=== PATIENT | male | born 1955 | race Caucasian/White ===

== ENCOUNTER 2018-05-29 16:07 | Observation (INO) | payer OTHER ==
[~2018-05-29] VITALS: Ht 172.7 cm; Wt 82.1 kg
[~2018-05-29 16:07] MED LIST: ROSU10TA PO; SULTRIDS PO
[2018-05-29 16:34] LABS: BASOPHILS ABSOLUTE AUTO 0.03 K/mm3 (0.00-0.23); BASOPHILS PERCENT AUTO 0 % (0-2); EOSINOPHILS PERCENT AUTO 0 % (0-6); Hematocrit 44.5 % (37.0-53.0); Hemoglobin 14.6 g/dL (13.5-17.5); IMMATURE GRAN ABSOLUTE AUTO 0.11 K/mm3 (0.00-0.10); IMMATURE GRAN PERCENT AUTO 1 % (0-1); LYMPHOCYTES PERCENT AUTO 12 % (21-46); MONOCYTES ABSOLUTE AUTO 0.28 K/mm3 (0.16-1.47); MONOCYTES PERCENT AUTO 3 % (4-13); Mean Corpuscular HGB 30.4 pg (26.0-34.0); Mean Corpuscular HGB Conc 32.8 g/dL (31.5-36.5); Mean Corpuscular Volume 93 fL (80-100); Mean Platelet Volume 10.1 fL (9.1-12.4); NEUTROPHILS ABSOLUTE AUTO 9.17 K/mm3 (1.96-9.15); NEUTROPHILS PERCENT AUTO 84 % (41-73); Platelet Count 309 K/mm3 (150-400); RDW Coefficient Variation 12.5 % (11.7-14.2); RDW Standard Deviation 42.6 fL (35.1-46.3); White Blood Cell Count 10.89 K/mm3 (4.00-11.30)
[2018-05-29] MEDS ORDERED: PRED20 PO (16:48)
[2018-05-29] MEDS ORDERED: ALLO300 PO (16:48)
[2018-05-29 16:49] LABS: Alanine Aminotransfer (ALT/SGP 44 U/L (12-78); Albumin, Blood 4.1 g/dL (3.4-5.0); Albumin/Globulin Ratio 1.2 (0.8-1.8); Alk Phos 114 U/L (50-136); Anion Gap 8 mmol/L (6-16); Aspartate Aminotrans (AST/SGOT 26 U/L (12-37); Bilirubin, Total 0.6 mg/dL (0.1-1.0); Blood Urea Nitrogen 22 mg/dL (8-24); Bun/Creatinine Ratio 23.8 (12.0-20.0); CO2, Blood 23 mmol/L (21-32); Calcium, Blood 8.7 mg/dL (8.5-10.1); Chloride, Blood 109 mmol/L (98-108); Creatinine, Blood 0.93 mg/dL (0.60-1.20); Globulin, Blood 3.4 g/dL (2.2-4.0); Glomerular Filtration Rate >60 (60-); Glucose, Blood 117 mg/dL (70-99); Potassium, Blood 4.6 mmol/L (3.5-5.5); Sodium, Blood 140 mmol/L (136-145); Total Protein, Blood 7.5 g/dL (6.4-8.2); Troponin I 0.028 ng/mL (0.000-0.040)
[2018-05-29] MEDS ORDERED: ALBU90OI61 INH (18:03)
[2018-05-29] MEDS ORDERED: GABA600 PO (18:45)
--- NOTE | 2018-05-29 20:42 | NUR ---
transfer report recieved from Jovanny JOEL in ER on PT being admitted OBS with chestpain. Will be on Tele Echo and stress test rx. Await admission
[2018-05-29 21:34] LABS: Creatine Kinase MB Index 4.3 (0.0-4.0); Troponin I 0.019 ng/mL (0.000-0.040)
[2018-05-30 02:40] LABS: BASOPHILS ABSOLUTE AUTO 0.04 K/mm3 (0.00-0.23); BASOPHILS PERCENT AUTO 0 % (0-2); EOSINOPHILS ABSOLUTE AUTO 0.07 K/mm3 (0.00-0.68); EOSINOPHILS PERCENT AUTO 1 % (0-6); Hematocrit 39.5 % (37.0-53.0); Hemoglobin 12.9 g/dL (13.5-17.5); IMMATURE GRAN ABSOLUTE AUTO 0.08 K/mm3 (0.00-0.10); IMMATURE GRAN PERCENT AUTO 1 % (0-1); LYMPHOCYTES ABSOLUTE AUTO 3.48 K/mm3 (0.84-5.20); LYMPHOCYTES PERCENT AUTO 26 % (21-46); MONOCYTES ABSOLUTE AUTO 0.95 K/mm3 (0.16-1.47); MONOCYTES PERCENT AUTO 7 % (4-13); Mean Corpuscular HGB 30.6 pg (26.0-34.0); Mean Corpuscular HGB Conc 32.7 g/dL (31.5-36.5); Mean Corpuscular Volume 94 fL (80-100); Mean Platelet Volume 10.2 fL (9.1-12.4); NEUTROPHILS PERCENT AUTO 66 % (41-73); Platelet Count 251 K/mm3 (150-400); RDW Coefficient Variation 12.7 % (11.7-14.2); RDW Standard Deviation 43.1 fL (35.1-46.3); Red Blood Cell Count 4.21 M/mm3 (4.30-5.90); White Blood Cell Count 13.62 K/mm3 (4.00-11.30)
[2018-05-30 02:55] LABS: Anion Gap 7 mmol/L (6-16); Blood Urea Nitrogen 21 mg/dL (8-24); Bun/Creatinine Ratio 20.2 (12.0-20.0); CO2, Blood 25 mmol/L (21-32); Calcium, Blood 8.1 mg/dL (8.5-10.1); Chloride, Blood 111 mmol/L (98-108); Cholesterol 179 mg/dL (50-200); Creatinine, Blood 1.04 mg/dL (0.60-1.20); Glomerular Filtration Rate >60 (60-); Glucose, Blood 125 mg/dL (70-99); Sodium, Blood 143 mmol/L (136-145); Triglycerides 184 mg/dL (30-160)
[2018-05-30 03:00] LABS: Creatine Kinase MB 1.3 ng/mL (0.0-3.6); Creatine Kinase MB Index 3.7 (0.0-4.0); Troponin I 0.023 ng/mL (0.000-0.040)
--- NOTE | 2018-05-30 04:45 | NUR ---
62 year old Male admitted with chest pain with exertion and negative troponins. on tele monitor with NSR. denies any pain since admit. 2nd troponin was negative so PT given sandwitch prior to midnight. he is npo for procedure. echo and stress test pending.
--- NOTE | 2018-05-30 15:18 | NUR ---
Echocardiogram performed.
[2018-05-30] MEDS ORDERED: ASPI81CH PO (17:28)
[2018-05-30] MEDS ORDERED: OMEPRAZOLE MAGN20 MG PO (17:29)
--- NOTE | 2018-05-30 18:00 | NUR ---
PATIENT DISCHARGE THE PATIENT WAS DISCHARGED HOME WITH HIS FAMILY AFTER DISCHARGE INSTRUCTIONS WERE GIVEN TO THE PATIENT. THE PATIENT PRESENTED THIS SHIFT WITHVITALS WNL, A&O X4 AND WITH CLEAR LUNG SOUNDS BUT DIM IN THE BASES. THE PATIENT HAD A NUCULAR STRESS TEST TODAY AND WAS WELL ENOUGH TO HAVE DR. GASTELUM DISCHARGE HIM THE PATIENT LEFT THE HOSPITAL WITHOUT CONCERN OR COMPLAINT.
== END 2018-05-30 18:02 | disposition home or self-care (01) ==
LOC: ER 16:07 → MEDS 16:08 → ERHOLD 16:08 → MEDS 20:43 → ENPENDDIS 05-30 16:25 → MEDS 05-30 18:02
PROVIDERS: Physician Assistant; ADMIT Family Medicine
DX: R07.89 Other chest pain (principal); M10.9 Gout, unspecified; K21.9 Gastro-esophageal reflux disease without esophagitis; M19.90 Unspecified osteoarthritis, unspecified site; Z88.0 Allergy status to penicillin; Z79.899 Other long term (current) drug therapy; Z79.52 Long term (current) use of systemic steroids
CPT/HCPCS: 36415; 71046; 78452; 80048; 80053; 82465; 82550; 82553; 83880; 84478; 84484; 85025; 85379; 93005; 93010; 93017; 93306; 96372; 96374; 96375; 99285-25; A9500; C9113; G0378; J0706; J1170; J1650; J2785; J7030; J7040

== ENCOUNTER 2021-08-27 09:49 | Emergency (ER) | payer OTHER, MEDICARE ==
[~2021-08-27] VITALS: Ht 167.6 cm; Wt 83.5 kg
[~2021-08-27 09:49] MED LIST changes: +ALBU90OI61 INH; +ALLO300 PO; +ASPI81CH PO; +GABA600 PO; +OMEPRAZOLE MAGN20 MG PO; +PRED20 PO
[2021-08-27] MEDS ORDERED: SULTRIDS PO (18:05)
== END 2021-08-27 18:48 | disposition home or self-care (01) ==
LOC: ER 09:49
DX: S62.607A Fracture of unspecified phalanx of left little finger, initial encounter for closed fracture (principal); S61.213A Laceration without foreign body of left middle finger without damage to nail, initial encounter; J45.909 Unspecified asthma, uncomplicated; I25.2 Old myocardial infarction; Z79.899 Other long term (current) drug therapy; Z79.82 Long term (current) use of aspirin; Z88.0 Allergy status to penicillin; W31.89XA Contact with other specified machinery, initial encounter; Y92.9 Unspecified place or not applicable
CPT/HCPCS: A9270; J0696